=== PATIENT | female | born 1930 | race Two or more races ===

== ENCOUNTER 2020-10-07 22:25 | Emergency (ER) | payer OTHER ==
[~2020-10-07] VITALS: Ht 160 cm; Wt 61.7 kg
[2020-10-07] MEDS ORDERED: SYNTHROID75 MCG (23:30)
[2020-10-07] MEDS ORDERED: TOPROL XL25 M1 (23:30)
[2020-10-07] MEDS ORDERED: AMLODIPINE-OLM1 EAC2 (23:30)
[2020-10-07] MEDS ORDERED: ZESTRIL20 MG (23:30)
[2020-10-07] MEDS ORDERED: XARELTO15 MG (23:31)
== END 2020-10-08 06:09 | disposition home or self-care (01) ==
LOC: ER 22:25 → EDBD 22:58 → ER 22:58
DX: R50.9 Fever, unspecified (principal); Z20.828 Contact with and (suspected) exposure to other viral communicable diseases